=== PATIENT | female | born 1935 | race Hispanic/Latino ===

== ENCOUNTER 2016-05-23 17:38 | Inpatient (IN) | payer OTHER ==
[2016-05-23] MEDS ORDERED: HALDOL IM ONE (20:19)
[2016-05-23 20:21] LABS: Hematocrit 44.7 % (30.3-42.9); Hemoglobin 14.3 gm/dl (10.1-14.3); Mean Corpuscular HGB Conc 32 % (30-34); Mean Corpuscular Hemoglobin 29 pg (28-32); Mean Corpuscular Volume 89 fl (79-97); Platelet Count 370 K/mm3 (140-440)
[2016-05-23 20:25] LABS: White Blood Count 25.5 K/mm3 (4.5-11.0)
[2016-05-23] MEDS ORDERED: ATIVAN IV ONE (20:29)
[2016-05-23] MEDS ORDERED: NACL 0.9% 500 ML 500 ML IV ONE (20:30)
--- NOTE | 2016-05-23 20:32 | Emergency Department Report ---
ED General Adult HPI - General Chief complaint: Nausea/Vomiting/Diarrhea Stated complaint: WEAKNESS Time Seen by Provider: 05/23/16 20:18 Source: EMS (ems notes not available at time of chart dictation), RN notes reviewed Mode of arrival: Stretcher Limitations: Altered Mental Status - History of Present Illness Initial comments: This is an 81-year-old female, previously unknown to me. Her primary care doctor is Dr. Saucedo As per enclosed paperwork, the patient is sent to the ER from the assisted living facility. She has a past medical history of Alzheimer's dementia, hypertension, right breast cancer. She is brought to the hospital by EMS. As per enclosed documentation the patient was sitting up from a sitting position, took a few steps and fell to the floor. When initially assessed she was unresponsive with eyes open, difficult pulses 2 by mouth, an unobtainable blood pressure. She was noted to be pale with diaphoresis. He enclosed documentation demonstrates that it is uncertain whether or not the patient was unresponsive before or after the fall. Apparently, the patient was incontinent of bowel, with loose watery stools at the time of the incident. After a period of 10 minutes the patient became more responsive and was assisted to a standing position. In the ER, the patient is demented, combative, does not answer open-ended questions, and is unable to offer any history. She did not respond to verbal the escalation techniques, and she was clearly a fall risk and a danger to herself. She was given 4 point restraints, and then medicated with Haldol and Ativan for her safety. -: Sudden Severity scale (0 -10): 0 Improves with: none Worsens with: none Associated Symptoms: confusion - Related Data Allergies Allergy/AdvReac Type Severity Reaction Status Date / Time shellfish derived Allergy Unknown Verified 05/23/16 18:39 strawberry Allergy Unknown Verified 05/23/16 18:39 ED Review of Systems ROS: Stated complaint: WEAKNESS Other details as noted in HPI Comment: Unobtainable due to pts medical conditions ED Physical Exam - General Limitations: Altered Mental Status General appearance: in no apparent distress - Head Head exam: Present: atraumatic, normocephalic - Eye Eye exam: Present: normal appearance, EOMI - ENT ENT exam: Present: normal exam, normal orophraynx, mucous membranes moist - Neck Neck exam: Present: normal inspection, full ROM. Absent: tenderness, meningismus - Respiratory Respiratory exam: Present: normal lung sounds bilaterally. Absent: respiratory distress, wheezes, rales, rhonchi, stridor, chest wall tenderness - Cardiovascular Cardiovascular Exam: Present: regular rate, normal rhythm, normal heart sounds. Absent: bradycardia, tachycardia, irregular rhythm, systolic murmur, diastolic murmur, rubs, gallop - GI/Abdominal GI/Abdominal exam: Present: soft, normal bowel sounds. Absent: distended, tenderness, guarding, rebound, rigid, pulsatile mass - Extremities Exam Extremities exam: Present: normal inspection, full ROM, normal capillary refill. Absent: tenderness, pedal edema, joint swelling, calf tenderness - Back Exam Back exam: Present: normal inspection, full ROM. Absent: tenderness, CVA tenderness (R), CVA tenderness (L), muscle spasm, paraspinal tenderness, vertebral tenderness - Neurological Exam Neurological exam: Present: altered, other (patient moves 4 extremities. She is confused, unable to assess sensation. There is no obvious facial droop.) - Psychiatric Psychiatric exam: Present: normal affect, normal mood - Skin Skin exam: Present: warm, dry, intact, normal color. Absent: rash ED Course Vital Signs 05/23/16 05/23/16 05/23/16 19:36 20:00 20:06 Temperature 98.6 F Pulse Rate 103 H 102 H Respiratory 11 L 18 Rate Blood Pressure 159/103 150/63 Blood Pressure 146/70 [Left] O2 Sat by Pulse 100 Oximetry 05/23/16 05/23/16 05/23/16 21:10 21:37 22:18 Temperature 99.4 F Pulse Rate 101 H Respiratory 16 18 Rate Blood Pressure 221/159 Blood Pressure [Left] O2 Sat by Pulse 100 Oximetry 05/23/16 22:58 Temperature Pulse Rate 94 H Respiratory 14 Rate Blood Pressure 155/75 Blood Pressure [Left] O2 Sat by Pulse Oximetry - Reevaluation(s) Reevaluation #1: 05/23/16 22:30 Differential diagnosis: Slip and fall, syncope, postconcussive syndrome, sundowning, urinary tract infection, pneumonia, acute coronary syndrome, arrhythmia, structural cardiac disease, pulmonary embolus, intracranial injury, cervical spine injury, pneumonia Assessment and plan: 81-year-old female with episode of unresponsiveness, documented hypotension, uncertain if the patient had a chewable event of syncope. She is demented, unable to offer history. Objectively speaking, she has stable vital signs, low-grade rectal temperature, is tachycardic, with a nonspecific leukocytosis. A urinalysis does not suggest urinary tract infection , and her chest x-ray does not suggest pneumonia. Her physical exam is otherwise grossly unremarkable. Her EKG is abnormal without prior for comparison. Most likely, I think that the patient had a slip and fall with a probable postconcussion syndrome. However, given her clinical ambiguity, advanced age, medical comorbidities, she will be admitted for further evaluation and management. There is no neck stiffness, there is full range of motion to the neck, therefore I doubt meningitis. However, given her tachycardia, leukocytosis, low-grade temperature, she may be bacteremic. She will be loaded empirically with 1 g of ceftriaxone, she will be given IV fluids , blood cultures will be drawn. I'm awaiting callback from her private physician. Reevaluation #2: 05/23/16 22:[address] Norton, the netsuite consultant,, admit the patient Dr Norton accepted the patient to her service 05/24/16 01:56 - EJ/Peripheral Line Arm R Time Out Performed: Yes Indications: other (i was the first providero to attempt) Skin Cleansed in Sterile Fashion: Yes Size: 18 Dressing Placed: Tegaderm Patient Tolerated Procedure: well ED Medical Decision Making - Lab Data Result diagrams: 05/23/16 20:04 05/23/16 20:04 Vital Signs 05/23/16 05/23/16 05/23/16 20:06 21:37 22:18 Temperature 98.6 F 99.4 F Pulse Rate 102 H Respiratory 18 18 Rate Blood Pressure 146/70 [Left] O2 Sat by Pulse 100 100 Oximetry Lab Results 05/23/16 05/23/16 05/23/16 Range/Units 20:04 20:04 20:40 WBC 25.5 H (4.5-11.0) K/mm3 RBC 5.00 (3.65-5.03) M/mm3 Hgb 14.3 (10.1-14.3) gm/dl Hct 44.7 H (30.3-42.9) % MCV 89 (79-97) fl MCH 29 (28-32) pg MCHC 32 (30-34) % RDW 14.0 (13.2-15.2) % Plt Count 370 (140-440) K/mm3 Add Manual Diff Complete Total Counted 100 Seg Neutrophils % Manager [employer] And Safety Seg Neuts % (Manual) 93.0 H (40.0-70.0) % Band Neutrophils % 3.0 % Lymphocytes % (Manual) 1.0 L (13.4-35.0) % Reactive Lymphs % (Man) 0 % Monocytes % (Manual) 3.0 (0.0-7.3) % Eosinophils % (Manual) 0 (0.0-4.3) % Basophils % (Manual) 0 (0.0-1.8) % Metamyelocytes % 0 % Myelocytes % 0 % Promyelocytes % 0 % Blast Cells % 0 % Nucleated RBC % Not Reportable Seg Neutrophils # Man 23.7 H (1.8-7.7) K/mm3 Band Neutrophils # 0.8 K/mm3 Lymphocytes # (Manual) 0.3 L (1.2-5.4) K/mm3 Abs React Lymphs (Man) 0.0 K/mm3 Monocytes # (Manual) 0.8 (0.0-0.8) K/mm3 Eosinophils # (Manual) 0.0 (0.0-0.4) K/mm3 Basophils # (Manual) 0.0 (0.0-0.1) K/mm3 Metamyelocytes # 0.0 K/mm3 Myelocytes # 0.0 K/mm3 Promyelocytes # 0.0 K/mm3 Blast Cells # 0.0 K/mm3 WBC Morphology Not Reportable Hypersegmented Neuts Not Reportable Hyposegmented Neuts Not Reportable Hypogranular Neuts Not Reportable Smudge Cells Not Reportable Toxic Granulation Not Reportable Toxic Vacuolation Not Reportable Dohle Bodies Not Reportable Pelger-Huet Anomaly Not Reportable [place] Rods Not Reportable Platelet Estimate Consistent w auto Clumped Platelets Not Reportable Plt Clumps, EDTA Not Reportable Large Platelets 1+ Giant Platelets Not Reportable Platelet Satelliting Not Reportable Plt Morphology Comment Not Reportable RBC Morphology Normal Dimorphic RBCs Not Reportable Polychromasia Not Reportable Hypochromasia Not Reportable Poikilocytosis Not Reportable Anisocytosis Not Reportable Microcytosis Not Reportable Macrocytosis Not Reportable Spherocytes Not Reportable Pappenheimer Bodies Not Reportable Sickle Cells Not Reportable Target Cells Not Reportable Tear Drop Cells Not Reportable Ovalocytes Not Reportable Helmet Cells Not Reportable [place] Bodies Not Reportable [place] Rings Not Reportable Levasy Cells Not Reportable Bite Cells Not Reportable Crenated Cell Not Reportable Elliptocytes Not Reportable Acanthocytes (Spur) Not Reportable Rouleaux Not Reportable Hemoglobin C Crystals Not Reportable Schistocytes Not Reportable Malaria parasites Not Reportable Javier Bodies Not Reportable Hem Pathologist Commnt No PT (12.2-14.9) Sec. INR (0.87-1.13) APTT (24.2-36.6) Sec. D-Dimer (0-234) ng/mlDDU Sodium 140 (137-145) mmol/L Potassium 5.1 H (3.6-5.0) mmol/L Chloride 97.4 L (98-107) mmol/L Carbon Dioxide 24 (22-30) mmol/L Anion Gap 24 mmol/L BUN 28 H (7-17) mg/dL Creatinine 1.0 (0.7-1.2) mg/dL Estimated GFR 53 ml/min BUN/Creatinine Ratio 28.00 % Glucose 149 H (65-100) mg/dL Lactic Acid (0.7-2.0) mmol/L Calcium 10.1 (8.4-10.2) mg/dL Magnesium (1.7-2.3) mg/dL Total Creatine Kinase (30-135) units/L Troponin T < 0.010 (0.00-0.029) ng/mL Urine Color (Yellow) Urine Turbidity (Clear) Urine pH (5.0-7.0) Ur Specific [place] (1.003-1.030) Urine Protein (Negative) mg/dL Urine Glucose (UA) (Negative) mg/dL Urine Ketones (Negative) mg/dL Urine Blood (Negative) Urine Nitrite (Negative) Urine Bilirubin (Negative) Urine Urobilinogen (<2.0) mg/dL Ur Leukocyte Esterase (Negative) Urine WBC (Auto) (0.0-6.0) /HPF Urine RBC (Auto) (0.0-6.0) /HPF U Epithel Cells (Auto) (0-13.0) /HPF Urine Mucus /HPF 05/23/16 05/23/16 05/23/16 Range/Units 20:40 20:41 21:30 WBC (4.5-11.0) K/mm3 RBC (3.65-5.03) M/mm3 Hgb (10.1-14.3) gm/dl Hct (30.3-42.9) % MCV (79-97) fl MCH (28-32) pg MCHC (30-34) % RDW (13.2-15.2) % Plt Count (140-440) K/mm3 Add Manual Diff Total Counted Seg Neutrophils % Seg Neuts % (Manual) (40.0-70.0) % Band Neutrophils % % Lymphocytes % (Manual) (13.4-35.0) % Reactive Lymphs % (Man) % Monocytes % (Manual) (0.0-7.3) % Eosinophils % (Manual) (0.0-4.3) % Basophils % (Manual) (0.0-1.8) % Metamyelocytes % % Myelocytes % % Promyelocytes % % Blast Cells % % Nucleated RBC % Seg Neutrophils # Man (1.8-7.7) K/mm3 Band Neutrophils # K/mm3 Lymphocytes # (Manual) (1.2-5.4) K/mm3 Abs React Lymphs (Man) K/mm3 Monocytes # (Manual) (0.0-0.8) K/mm3 Eosinophils # (Manual) (0.0-0.4) K/mm3 Basophils # (Manual) (0.0-0.1) K/mm3 Metamyelocytes # K/mm3 Myelocytes # K/mm3 Promyelocytes # K/mm3 Blast Cells # K/mm3 WBC Morphology Hypersegmented Neuts Hyposegmented Neuts Hypogranular Neuts Smudge Cells Toxic Granulation Toxic Vacuolation Dohle Bodies Pelger-Huet Anomaly [place] Rods Platelet Estimate Clumped Platelets Plt Clumps, EDTA Large Platelets Giant Platelets Platelet Satelliting Plt Morphology Comment RBC Morphology Dimorphic RBCs Polychromasia Hypochromasia Poikilocytosis Anisocytosis Microcytosis Macrocytosis Spherocytes Pappenheimer Bodies Sickle Cells Target Cells Tear Drop Cells Ovalocytes Helmet Cells [place] Bodies [place] Rings Levasy Cells Bite Cells Crenated Cell Elliptocytes Acanthocytes (Spur) Rouleaux Hemoglobin C Crystals Schistocytes Malaria parasites Javier Bodies Hem Pathologist Commnt PT 13.0 (12.2-14.9) Sec. INR 0.99 (0.87-1.13) APTT 28.1 (24.2-36.6) Sec. D-Dimer 225.42 (0-234) ng/mlDDU Sodium (137-145) mmol/L Potassium (3.6-5.0) mmol/L Chloride (98-107) mmol/L Carbon Dioxide (22-30) mmol/L Anion Gap mmol/L BUN (7-17) mg/dL Creatinine (0.7-1.2) mg/dL Estimated GFR ml/min BUN/Creatinine Ratio % Glucose (65-100) mg/dL Lactic Acid (0.7-2.0) mmol/L Calcium (8.4-10.2) mg/dL Magnesium 2.1 (1.7-2.3) mg/dL Total Creatine Kinase 28 L (30-135) units/L Troponin T (0.00-0.029) ng/mL Urine Color [place] (Yellow) Urine Turbidity Slightly-cloudy (Clear) Urine pH 5.0 (5.0-7.0) Ur Specific [place] 1.024 (1.003-1.030) Urine Protein 30 mg/dl (Negative) mg/dL Urine Glucose (UA) Neg (Negative) mg/dL Urine Ketones Tr (Negative) mg/dL Urine Blood Neg (Negative) Urine Nitrite Neg (Negative) Urine Bilirubin Neg (Negative) Urine Urobilinogen 2.0 (<2.0) mg/dL Ur Leukocyte Esterase Neg (Negative) Urine WBC (Auto) 3.0 (0.0-6.0) /HPF Urine RBC (Auto) 5.0 (0.0-6.0) /HPF U Epithel Cells (Auto) 1.0 (0-13.0) /HPF Urine Mucus 3+ /HPF 05/23/16 Range/Units 21:32 WBC (4.5-11.0) K/mm3 RBC (3.65-5.03) M/mm3 Hgb (10.1-14.3) gm/dl Hct (30.3-42.9) % MCV (79-97) fl MCH (28-32) pg MCHC (30-34) % RDW (13.2-15.2) % Plt Count (140-440) K/mm3 Add Manual Diff Total Counted Seg Neutrophils % Seg Neuts % (Manual) (40.0-70.0) % Band Neutrophils % % Lymphocytes % (Manual) (13.4-35.0) % Reactive Lymphs % (Man) % Monocytes % (Manual) (0.0-7.3) % Eosinophils % (Manual) (0.0-4.3) % Basophils % (Manual) (0.0-1.8) % Metamyelocytes % % Myelocytes % % Promyelocytes % % Blast Cells % % Nucleated RBC % Seg Neutrophils # Man (1.8-7.7) K/mm3 Band Neutrophils # K/mm3 Lymphocytes # (Manual) (1.2-5.4) K/mm3 Abs React Lymphs (Man) K/mm3 Monocytes # (Manual) (0.0-0.8) K/mm3 Eosinophils # (Manual) (0.0-0.4) K/mm3 Basophils # (Manual) (0.0-0.1) K/mm3 Metamyelocytes # K/mm3 Myelocytes # K/mm3 Promyelocytes # K/mm3 Blast Cells # K/mm3 WBC Morphology Hypersegmented Neuts Hyposegmented Neuts Hypogranular Neuts Smudge Cells Toxic Granulation Toxic Vacuolation Dohle Bodies Pelger-Huet Anomaly [place] Rods Platelet Estimate Clumped Platelets Plt Clumps, EDTA Large Platelets Giant Platelets Platelet Satelliting Plt Morphology Comment RBC Morphology Dimorphic RBCs Polychromasia Hypochromasia Poikilocytosis Anisocytosis Microcytosis Macrocytosis Spherocytes Pappenheimer Bodies Sickle Cells Target Cells Tear Drop Cells Ovalocytes Helmet Cells [place] Bodies [place] Rings Levasy Cells Bite Cells Crenated Cell Elliptocytes Acanthocytes (Spur) Rouleaux Hemoglobin C Crystals Schistocytes Malaria parasites Javier Bodies Hem Pathologist Commnt PT (12.2-14.9) Sec. INR (0.87-1.13) APTT (24.2-36.6) Sec. D-Dimer (0-234) ng/mlDDU Sodium (137-145) mmol/L Potassium (3.6-5.0) mmol/L Chloride (98-107) mmol/L Carbon Dioxide (22-30) mmol/L Anion Gap mmol/L BUN (7-17) mg/dL Creatinine (0.7-1.2) mg/dL Estimated GFR ml/min BUN/Creatinine Ratio % Glucose (65-100) mg/dL Lactic Acid 3.3 H* (0.7-2.0) mmol/L Calcium (8.4-10.2) mg/dL Magnesium (1.7-2.3) mg/dL Total Creatine Kinase (30-135) units/L Troponin T (0.00-0.029) ng/mL Urine Color (Yellow) Urine Turbidity (Clear) Urine pH (5.0-7.0) Ur Specific [place] (1.003-1.030) Urine Protein (Negative) mg/dL Urine Glucose (UA) (Negative) mg/dL Urine Ketones (Negative) mg/dL Urine Blood (Negative) Urine Nitrite (Negative) Urine Bilirubin (Negative) Urine Urobilinogen (<2.0) mg/dL Ur Leukocyte Esterase (Negative) Urine WBC (Auto) (0.0-6.0) /HPF Urine RBC (Auto) (0.0-6.0) /HPF U Epithel Cells (Auto) (0-13.0) /HPF Urine Mucus /HPF - EKG Data When compared to previous EKG there are: previous EKG unavailable Normal 05/23/16 22:30\ EKG demonstrates sinus tachycardia, 101 bpm, normal axis, prolonged QTC at 469 ms. Poor R-wave progression, T-wave inversions V2, V3, V4, V5 and V6. Abnormal EKG, not morphologically consistent with STEMI. - Radiology Data Radiology results: report reviewed, image reviewed interpreted by me: xr chest negative ct head negative ct cervical spine negative Critical care attestation.: If time is entered above; I have spent that time in minutes in the direct care of this critically ill patient, excluding procedure time. ED Disposition Clinical Impression: Abnormal EKG, Altered mental status Disposition: OP ADMITTED IP TO THIS HOSP Is pt being admited?: Yes Condition: Good
[2016-05-23 20:38] LABS: Calcium 10.1 mg/dL (8.4-10.2); Chloride 97.4 mmol/L (98-107); Potassium 5.1 mmol/L (3.6-5.0)
[2016-05-23 21:01] LABS: INR 0.99 (0.87-1.13)
[2016-05-23 21:02] LABS: Partial Thromboplastin Time 28.1 Sec. (24.2-36.6)
[2016-05-23 21:08] LABS: Basophils % (Manual) 0 % (0.0-1.8); Blastocytes % (Manual) 0 %; Eosinophils % (Manual) 0 % (0.0-4.3); Large Platelets 1+
[2016-05-23 21:09] LABS: Diff Status Complete; Platelet Estimate Consistent w Auto; RBC Morphology Normal
--- NOTE | 2016-05-23 21:22 | Cat Scan Report ---
FINAL REPORT PROCEDURE: CT head without contrast. TECHNIQUE: Computerized tomography of the head was performed without contrast material. HISTORY: Altered mental status, patient fell. COMPARISON: No prior studies are available for comparison. FINDINGS: There is moderate cerebral atrophy consistent with age. There is mild evidence of chronic ischemic white matter disease. There are no mass lesions. There is no intracranial hemorrhage. There are no signs of acute infarction. The calvarium appears intact. There is opacification of the right mastoid air cells. There is some fluid adjacent to the inner ear ossicles. There are bilateral maxillary antral windows. IMPRESSION: Normal study of the brain for age. Right mastoiditis and otitis media.
--- NOTE | 2016-05-23 21:40 | Cat Scan Report ---
FINAL REPORT PROCEDURE: CT cervical spine without contrast. TECHNIQUE: Computerized tomography of the cervical spine was performed from the skull base to T1 without contrast material. HISTORY: Altered mental status, patient fell, neck pain. COMPARISON: No prior studies are available for comparison. FINDINGS: The cervical vertebrae have normal height and alignment. There are no fractures. There is no subluxation. There is moderate disc space narrowing at C5-6 and C6-7. There are small vertebral body osteophytes in the lower cervical spine. The spinal canal appears adequately patent. 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 There is moderate osteophytic narrowing of the left neural foramina at C6-7. The prevertebral soft tissues have normal thickness. IMPRESSION: Degenerative disease as described. No evidence of acute cervical spine injury.
[2016-05-23 21:46] LABS: Magnesium 2.1 mg/dL (1.7-2.3)
[2016-05-23 22:01] LABS: Bilirubin,Urine NEG (Negative); Blood,Urine NEG (Negative); Ketones,Urine TR mg/dL (Negative); Leukocyte Esterase,Urine NEG (Negative); Mucus,Urine 3+ /HPF; Nitrite,Urine NEG (Negative)
[2016-05-23] MEDS ORDERED: ROCEPHIN/NS 1 GM/50 ML 50 ML IV ONE (22:28)
[2016-05-23] MEDS ORDERED: BABY ASPIRIN PO ONE (22:35)
--- NOTE | 2016-05-23 23:10 | XRay Report ---
FINAL REPORT PROCEDURE: Chest. TECHNIQUE: Chest radiograph anteroposterior view. CPT 13695 HISTORY: Altered mental status, possible pneumonia. COMPARISON: No prior studies are available for comparison. FINDINGS: The heart size is normal. There is dense calcification in the aortic arch. The lungs are clear and well expanded. There are no pleural effusions. The soft tissues are unremarkable. There is a mild thoracic scoliosis. IMPRESSION: No evidence of acute cardiopulmonary disease.
--- NOTE | 2016-05-24 00:22 | Admit Criteria Form ---
Admission Criteria Documentation: CARDIOLOGY GRG Clinical Indications for Admission to Inpatient Care ( Place 'X' for any and all applicable criteria): Hospital admission is needed for appropriate care of the patient because of ANY ONE of the following (1): [ ] I. Hemodynamic instability as indicated by ALL of the following (1)(2)(3) (4)(5) [ ]a) Vital signs or other findings not as expected for chronic patient condition or baseline [ ]b) Instability indicated by ANY ONE of the following: [ ]i) Hypotension [ ]ii) Symptomatic Tachycardia unresponsive to treatment ( e.g., analgesia, fluids, sedation as indicated) [ ]iii) Inadequate perfusion indicated by ANY ONE of the following: [ ] 1) Lactic acidosis (> 2 mmol/L) [ ] 2) New abnormal capillary refill (> 3 seconds) [ ] 3) Reduced urine output [ ] 4) New altered mental status [ ]iv) Orthostatic vital sign changes unresponsive to treatment (e.g., fluids) [ ]v) IV inotropic or vasopressor medication required to maintain adequate blood pressure or perfusion [ ] II. Severe heart failure as indicated by ANY ONE of the following(17)(18) [ ]a) Respiratory distress [ ]b) Hypotension [ ]c) Anasarca (refractory to outpatient therapy) [ ]d) Cardiac arrhythmias of immediate concern [ ]e) Myocardial ischemia [ ] III. Cardiac arrhythmias or findings of immediate concern indicated by ANY ONE of the following (19)(20): [ ] a) Heart rhythms that are inherently dangerous or unstable indicated by ANY ONE of the following (21)(22)(23): [ ] i) Resuscitated ventricular fibrillation or cardiac arrest [ ] ii) Ventricular escape rhythm [ ] iii) Sustained ventricular tachycardia (30 seconds or more of ventricular rhythm at greater than 100 beats per minute) [ ] iv) Nonsustained ventricular tachycardia and ANY ONE of the following: [ ] 1) Suspected cardiac ischemia as cause or consequence of ventricular tachycardia [ ] 2) In setting of acute myocarditis [ ] b) Unstable cardiac conduction defects indicated by ANY ONE of the following(23)(24)(25) [ ] i) Type II second-degree atrioventricular block [ ]ii) Third-degree atrioventricular block [ ]iii) New-onset left bundle branch block with suspected myocardial ischemia [ ]c) Any heart rhythm and ANY ONE of the following (21)(22)(26)(27) (28) [ ] i) Continuous long-term ECG monitoring needed (e.g., initiation of drug requiring monitoring for more than 24 hours) [ ] ii) Patient has automatic implanted cardioverter defibrillator that is repeatedly firing, malfunctioning, or in need of immediate adjustment of settings beyond the scope of ambulatory or observation care [ ]d) Heart rhythms of concern due to ANY ONE of the following: [ ] i) Hypotension [ ] ii) Respiratory distress [ ] iii) Association with other significant symptoms (e.g., bradycardia with syncope or ongoing dizziness, supraventricular tachycardia with chest pain (14)(15)(17) [ ] IV. Monitoring for cardiac contusion beyond the scope of observation care needed [A](30)(31)(32) [ ] V. Surgical or device complication (e.g., valve replacement complication , pacemaker dysfunction) (35)(41)(44)(45)(46) [ ] . Inpatient palliative care needed. [B](49) Also use Inpatient Palliative Care Criteria [ ] VII. Nonbacterial thrombotic (marantic) endocarditis (36)(43)(47)(48) [X ] VIII. Cardiology condition, symptom, or finding for which emergency and observation care has failed or are not considered appropriate. [ ] IX. Acute valvular disease requiring inpatient as indicated by ANY ONE of the following (41) [ ]a) Acute valvular regurgitation (42) [ ]b) Noninfectious valvulitis (43) [ ]c) Obstructive valve thrombosis [ ]d) Paravalvular leak [ ]e) Other significant valvular disorder remaining after emergency or observation level of care (as appropriate) [ ]X. Pericardial disease requiring inpatient treatment as indicated by ANY ONE of the following (33)(34)(35)(36)(37) [ ]a) Suspected tamponade (38)(39)(40) [ ]b) Hemopericardium [ ]c) Other significant pericardial disorder remaining after emergency or observation level of care (as appropriate) [ ] XI. Cardiac ischemia beyond scope of emergency and observation care. [ ] XII. Hypertension requiring inpatient treatment as indicated by ANY ONE of the following (6)(7)(8) [ ]a) SBP greater than 220 mm Hg or DBP greater than 120 mmHg despite treatment [ ]b) SBP greater than 140 mm Hg or DBP greater than 100 mm Hg with evidence of acute end organ damage as indicated by ANY ONE of the following [ ] i) Altered mental status [ ] ii) Acute renal failure as indicated by new onset of ANY ONE of the following (9)(10)(11)(12)(13) [ ]1) 3-fold rise in serum creatinine from baseline [ ]2) Serum creatinine greater than 4 mg/dL ( 354 micromoles/L) with acute rise greater than 0.5 mg/dL (44.2 micromoles/L) [ ]3) Reduction of more than 75% in estimated glomerular filtration rate from baseline [ ]4) Estimated glomerular filtration rate less than 35 mL/min/1.73m2 (0.59 mL/sec/1.73m2) in child up to 18 years of age [ ]5) Cessation of urine output indicated by ALL of the following [ ]A. Adequate volume status [ ]B. Inadequate urine output as indicated by ANY ONE of the following [ ]a. Urine output less than 0.3 mL/kg/hr for 24 hours [ ]b. Anuria (urine output less than 0.1 mL/kg/hr) for 12 hours [ ] iii) Aortic dissection [ ] iv) Myocardial Ischemia [ ] v) Left ventricular heart failure [ ]vi) Retinal Hemorrhage [ ]vii) Other significant finding [ ]c) Hypertension in child requiring inpatient treatment as indicated by ALL of the following(14)(15)(16) [ ] i) Outpatient treatment not effective, not available, or not appropriate [ ]ii) SBP or DBP greater than 95th percentile for age [ ]iii) Evidence of acute end organ damage as indicated by ANY ONE of the following [ ]1) Altered mental status [ ]2) Acute renal failure as indicated by new onset of ANY ONE of the following(9)(10)(11)(12)(13) [ ]A. 3-fold rise in serum creatinine from baseline [ ]B. Serum creatinine greater than 4 mg/dL (354 micromoles/L) with acute rise greater than 0.5 mg/dL (44.2 micromoles/L) [ ]C. Reduction of more than 75% in estimated glomerular filtration rate from baseline [ ]D. Estimated glomerular filtration rate less than 35 mL/min/1.73m2 (0.59 mL/sec/1.73m2) in child up to 18 years of age [ ]E. Cessation of urine output indicated by ALL of the following [ ]a. Adequate volume status [ ]b. Inadequate urine output as indicated by ANY ONE of the following [ ]i) Urine output less than 0.3 mL/kg/hr for 24 hours [ ]ii) Anuria ( urine output less than 0.1 mL/kg/hr) for 12 hours [ ]3) Severe headache [ ]4) Visual disturbance [ ]5) Retinal hemorrhage [ ]6) Other significant finding [ ]XIII. Complications of transplanted heart indicated by ANY ONE of the following(61): [ ]a) Acute graft rejection requiring inpatient management (eg, intravenous immunosuppression)(62)(63) [ ]b) Acute graft heart failure indicated by ANY ONE of the following(64): [ ]i) Hemodynamic instability [ ]ii) Cardiac arrhythmias of immediate concern [ ]iii) Pulmonary edema that is very severe (eg, mechanical ventilation needed, imminent or likely, need for 100% oxygen to keep oxygen saturation above 90%) [ ]iv) Pulmonary edema that is persistent as indicated by ALL of the following: [ ]1) New need for oxygen therapy to keep oxygen saturation above 90% (or increased FiO2 need from baseline) [ ]2) Has not improved sufficiently with emergency department or observation care IV diuretics or other heart failure treatments[E] [ ]v) Altered mental status that is severe or persistent [ ]vi) Increased creatinine (new on laboratory test) with reduction of more than 50% in estimated glomerular filtration rate from baseline [ ]vii) Progressively (ongoing) rising creatinine (known from past laboratory test) with reduction of more than 25% in estimated glomerular filtration rate from baseline [ ]viii) Acute renal failure [ ]ix) Acute peripheral ischemia (eg, examination shows pulseless, cool, mottled, or cyanotic extremity) [ ]x) Pulmonary artery catheter monitoring needed [ ]xi) Other sign or symptom of heart failure requiring inpatient treatment (ie, too severe or not responsive to outpatient and observation care treatment) [ ]c) Infection requiring inpatient management (eg, Hemodynamic instability, need for intravenous antimicrobial treatment)(66)(67)(68)(69)(70) [ ]d) Cardiac allograft vasculopathy requiring inpatient management ( eg evidence of cardiac ischemia)(71) [ ]e) Other complication of transplanted heart (eg, stroke, severe pulmonary hypertension, severe valvular dysfunction) requiring inpatient management(72) The original [facility] [employer] [facility] content created by [email or web address] has been revised. The portions of the content which have been revised are identified through the use of italic text or in bold, and [facility] has neither reviewed nor approved the modified material. All other unmodified content is copyright [email or web address]. Please see references footnoted in the original [email or web address] edition 2016 Admission Criteria Met: Yes
[2016-05-24] MEDS ORDERED: MILK OF MAGNESIA PO PRN (03:21)
[2016-05-24] MEDS ORDERED: TYLENOL PO PRN (03:21)
[2016-05-24] MEDS ORDERED: ZOFRAN IV PRN (03:21)
[2016-05-24] MEDS ORDERED: APRESOLINE IV PRN (06:35)
--- NOTE | 2016-05-24 06:37 | History and Physical Report ---
[id number] History of present illness: This is a 81-year-old woman with history of hypertension, dementia, breast cancer was sent to the emergency room for loose stool and vomiting 2. Notes from the facility, there has been an outbreak of gastroenteritis. Patient is unable to give a history, review of system is unobtainable PAST SURGICAL HISTORY: Unknown SOCIAL HISTORY: Unknown FAMILY HISTORY: Unknown Medications and Allergies Allergies Allergy/AdvReac Type Severity Reaction Status Date / Time shellfish derived Allergy Unknown Verified 05/23/16 18:39 strawberry Allergy Unknown Verified 05/23/16 18:39 Home Medications Medication Instructions Recorded Confirmed Last Taken Type Anastrozole 1 mg PO QDAY 05/24/16 05/24/16 05/23/16 History Doxepin [SINEquan] 10 mg PO QHS 05/24/16 05/24/16 05/23/16 History Lisinopril 40 mg PO QDAY 05/24/16 05/24/16 05/23/16 History Active Meds: Active Medications Acetaminophen (Tylenol) 650 mg PO Q4H PRN PRN Reason: Pain MILD(1-3)/Fever >100.5/BOLDEN Doxepin HCl (Sinequan) 10 mg PO QHS CHE Enoxaparin Sodium (Lovenox) 40 mg SUB-Q QDAY@1000 CHE Hydralazine HCl (Apresoline) 5 mg IV Q6HR PRN PRN Reason: Hypertension Ceftriaxone Sodium (Rocephin/Ns 1 Gm/50 Ml) 50 mls @ 100 mls/hr IV Q24H CEH Lisinopril (Zestril) 40 mg PO QDAY CHE Magnesium Hydroxide (Milk Of Magnesia) 30 ml PO Q4H PRN PRN Reason: Constipation Miscellaneous Medication (Anastrozole [Anastrozole]) 1 mg PO QDAY CHE Ondansetron HCl (Zofran) 4 mg IV Q8H PRN PRN Reason: N/V unrelieved by Reglan Exam - Physical Exam Narrative exam: Gen. appearance: Patient lying in bed, no apparent distress HEENT: Normocephalic, atraumatic, pupils equally round and reactive to light, extraocular movement intact, and no sclericterus,. No JVD or thyromegaly or nodule,neck supple, no carotid bruit ,mucous membranes moist, no exudate or erythema Heart: S1, S2, regular rate and rhythm Lungs: Clear to auscultation bilaterally anteriorly, breathing comfortable Abdomen: Positive bowel sounds, nontender, nondistended, no organomegaly Extremity: No edema, cyanosis, clubbing Skin: No rash, nodules, warm, dry Neuro: Open eyes, does not follow commands - Constitutional Vitals: Temp Pulse Resp BP Pulse Ox 98.6 F 106 H 18 192/85 95 05/24/16 06:07 05/24/16 06:07 05/24/16 06:07 05/24/16 06:07 05/24/16 06:07 Results - Labs CBC & Chem 7: 05/25/16 05:30 05/25/16 05:30 - Imaging and Cardiology CT Scan - head: report reviewed Assessment and Plan CT C-spine reviewed, no acute pathology Gastroenteritis, rule out C. difficile Dehydration Hypertension Dementia History of breast cancer Admits medicine Start IV fluid, IV Rocephin pending cultures Up obtain stool cultures, C. difficile Continue appropriate outpatient medication Start IV hydralazine as needed for blood pressure control and start DVT prophylaxis
[2016-05-24] MEDS ORDERED: LOVENOX SUB-Q SCH (10:00)
[2016-05-24] MEDS ORDERED: ANASTROZOLE 1 MG PO SCH (10:00)
[2016-05-24] MEDS ORDERED: HALDOL PO PRN (11:11)
[2016-05-24] MEDS: LOVENOX SUB-Q SCH (11:55)
[2016-05-24] MEDS: ZESTRIL PO SCH (17:12)
[2016-05-24] MEDS ORDERED: SINEquan PO SCH (22:00)
[2016-05-24] MEDS ORDERED: ROCEPHIN/NS 1 GM/50 ML 50 ML IV SCH (22:00)
[2016-05-25 06:02] LABS: Hematocrit 36.8 % (30.3-42.9); Hemoglobin 12.3 gm/dl (10.1-14.3); Mean Corpuscular HGB Conc 33 % (30-34); Mean Corpuscular Hemoglobin 29 pg (28-32); Mean Corpuscular Volume 87 fl (79-97); Platelet Count 250 K/mm3 (140-440); Red Blood Count 4.21 M/mm3 (3.65-5.03); Red Cell Distribution Width 14.3 % (13.2-15.2); White Blood Count 6.8 K/mm3 (4.5-11.0)
[2016-05-25 06:16] LABS: Anion Gap 17 mmol/L; BUN/Creatinine Ratio 34.44; Blood Urea Nitrogen 31 mg/dL (7-17); Calcium 9.1 mg/dL (8.4-10.2); Carbon Dioxide 24 mmol/L (22-30); Chloride 102.8 mmol/L (98-107); Glucose 89 mg/dL (65-100); Sodium 140 mmol/L (137-145)
[2016-05-25 06:30] LABS: Potassium 3.7 mmol/L (3.6-5.0)
[2016-05-25 06:51] LABS: Blastocytes % (Manual) 0 %; Diff Status Complete; Platelet Estimate Consistent w Auto; RBC Morphology Normal
[2016-05-25 09:07] VITALS: BP 135/63
[2016-05-25] MEDS: ZESTRIL PO SCH (10:16)
[2016-05-25] MEDS: LOVENOX SUB-Q SCH (10:17)
--- NOTE | 2016-05-25 11:09 | Discharge Summary ---
Providers - Providers Date of Admission: 05/24/16 00:15 Attending physician: FELIPA MUJICA MD Primary care physician: IRENE SHETTY Hospitalization Condition: Good Hospital course: This is an elderly woman with advanced dementia who resides in a [facility]. There was apparently a gastroenteritis outbreak in her [facility]. She presented with 1-2 days of watery diarrhea and dehydration. She was hydrated with IV fluids. Of notes diarrhea resolved shortly after arriving at the hospital, she clinically improved and is being discharged in improved condition Discharge diagnoses 1. Acute gastroenteritis 2. Dehydration. 3. Dementia- received supportive care 4. Hypertension- continue home meds 5. hx of breast ca- continued anastrazole Disposition: DC/[place] SNF W [facility] CERT Time spent for discharge: 35 minutes Core Measure Documentation - Palliative Care Palliative Care/ Comfort Measures: Not Applicable - Core Measures Any of the following diagnoses?: none Exam - Physical Exam Narrative exam: General: Patient appears well in no distress HEENT: MMM, EOMI cardiac: S1-S2 heard lungs: clear to auscultation, abdomen: soft, nontender, nondistended bowel sounds positive extremities: no edema clubbing or cyanosis Skin: no rash or lesion Neuro: Moves all extremities, demented, obeys some commands Psych: Demented - Constitutional Vitals: Temp Pulse Resp BP Pulse Ox 98.2 F 58 L 16 135/63 98 05/25/16 09:06 05/25/16 09:06 05/25/16 09:06 05/25/16 09:06 05/25/16 09:06 Plan Follow up with: IRENE SHETTY MD [Primary Care Provider] - 3-5 Days
--- NOTE | 2016-05-30 11:19 | Query-Infection ---
"Dear Date:05/30/16 Campus Recruiting Coordinator/CDS:Rosalio Martinez Phone#: Exercise your independent professional judgment when responding to this query. Questions asked do not imply a particular answer is desired or expected. We greatly appreciate your clarification on this issue. Clinical Documentation States: 81 Y/O f admitted 05/24/16 with AMS, dehydration, diarrhea and gastroenteritis. Patient was treated with rocephin. Clinical findings show: (please check applicable parameters) Infection, known /suspected, with some of the following indicators; Specify the infection:Gastroenteritis 3 General parameters [ ] Fever (core temp >38.30C or 100.40F) [ ] Hypothermia (core temp <36C) [x] Heart rate >90 bpm [ ] Tachypnea: >20 bpm or pCO2 < 32 mmHg [ ] Altered mental status [ ] Significant edema / +ve fluid balance (>20 ml/kg 24 h) [ ] Hyperglycemia (Bl. glucose >110 mg/dl) w/o diabetes Inflammatory parameters [x] Leukocytosis (white blood cell count >12,000/l) [ ] Leukopenia (white blood cell count <4,000/l) [ ] Bandemia (immature WBC > 10%) [ ] Leucocyte Left Shift [ ] Plasma procalcitonin>2 SD above the normal value Hemodynamic and tissue perfusion parameters [ ] Arterial hypotension(SBP <90 mmHg, MAP <70 mmHg,or a SBP drop >40 mmHg in adults) [x] Hyperlactatemia (>2 mmol/l) [ ] Anion Gap (> 11mEG/l) [ ] Decreased capillary refill or mottling Organ dysfunction parameters [ ] Arterial hypoxemia (PaO2/FIO2 <300) [ ] Creatinine increase =0.5 mg/dl [ ] Acute oliguria (urine output <0.5 ml | kg |h or 45 mM/l for at least 2 hrs) [ ] Coagulation abnormalities (INR >1.5 or activated partial thromboplastin time >60 s) [ ] Ileus (absent ken wel sounds) [ ] Thrombocytopenia (platelet count <100,000/l) [ ] Hyperbilirubinemia (plasma total bilirubin >4 mg/dl) According to the clinical indications above, can Bacteremia be further specified? If so, please indicate below and in your Progress Notes and/ or Discharge Summary. Indicate if the condition was present on admission. PHYSICIAN RESPONSE: [ x] Sepsis [ ] Severe Sepsis [ ] Septic Shock [ ] Septicemia [ ] Sepsis now resolved [ ] SIRS due to non-infectious cause with organ dysfunction [ ] SIRS due to non-infectious cause without organ dysfunction [ ] Other: [ ] Comment/Explanation: Present on Admission: [ ] Yes (Y) [ ] Clinically undeterminable (W) [ ] No ( N) [ ] Ruled Out Please also document response in your Progress Notes and/or Discharge Summary and indicate if the condition was present on admission Notes: SIRS/ SIRS WITH ORGAN DYSFUNCTION Systemic inflammatory response syndrome (SIRS) generally refers to the systemic response to trauma/haque or other insult such as Acute Myocardial Infarction, Acute Pancreatitis, and Major Surgery with symptoms including fever, tachycardia , tachypnea, and leukocytosis (1). BACTEREMIA Presence of viable bacteria in the circulating blood (2). This term is reserved for patients that do not manifest above SIRS response. SEPTICEMIA Generally refers to a systemic disease associated with the presence of pathological microorganisms or toxins in the blood, which can include bacteria, viruses, fungi or other organisms (1). SEPSIS Generally refers to SIRS due infection (1). SEVERE SEPSIS Generally refers to sepsis associated with acute organ dysfunction (1). SEPTIC SHOCK Generally refers to circulatory failure associated with severe sepsis (2), and defined as hypotension or hypoperfusion despite adequate fluid resuscitation (1 hour) (3). REFERENCES: 1. [employer]/Society of Critical Care Medicine Consensus Conference. Definitions for sepsis and organ failure and guidelines for the use of innovative therapies in sepsis. Critical Care Med 1992;20:864 - 74. 2. Irvin velasquez MM, Adis MP, Yung NIKKI, Harjit E, Simba D, Misael D, Caden J, Liliana SM , Saurabh JL, Sharon G; International Sepsis Definitions Conference. 2001 SCCM/ESICM/ACCP/ATS/SIS International Sepsis Definitions Conference. Intensive Care Med. 2002 Apr;29(4):530-8. Epub 2003 Mar 28. Review. PubMed PMID:[id number] 3. ICD-9-CM Official Guidelines for Coding and Reporting 4. Medscape Drugs, Diseases and Procedures references 5. Jennifer Textbook of Internal Medicine. 18th Edition MTDD"
--- NOTE | 2016-05-30 11:23 | Query-Altered Level of Consc. ---
Dear Date:05/30/16 Senior Project Controls Specialist/CDS:Rosalio Martinez Phone#: Exercise your independent professional judgment when responding to this query. Questions asked do not imply a particular answer is desired or expected. We greatly appreciate your clarification on this issue. Clinical Documentation States: 81 y/o f admitted 05/24/16 with AMS and PMH dementia. "Unresponsive with eyes open". (ED note, Dr. Marr, 05/24/16) Clinical Findings Show: Patient was also diagnosed with dehydration, diarrhea, MEHUL and gastroenteritis. patient treated with ceftriaxone. Please provide an appropriate diagnosis clarifying the Etiology and Acuity of this clinical scenario: [ ] Metabolic Encephalopathy [ ] Toxic Encephalopathy [ x] Toxic - Metabolic Encephalopathy [ ] Septic Encephalopathy with Sepsis [ ] Septic Encephalopathy without Sepsis [ ] Acute Hepatic Encephalopathy [ ] Subacute Hepatic Encephalopathy [ ] Encephalopathy [ ] Other: [ ] Unable To Determine [ ]Comment/Explanation: Present on Admission: [ x] Yes (Y) [ ] Clinically undeterminable (W) [ ] No (N) Please also document response in your Progress Notes and/or Discharge Summary and indicate if the condition was present on admission. MTDD
== END 2016-05-25 13:10 | DRG 871 ==
LOC: ED 17:38 → 4A 05-24 00:15
PROVIDERS: ADMIT Internal Medicine; ATTEND Internal Medicine
DX: A41.9 Sepsis, unspecified organism (principal); G92 Toxic encephalopathy; K52.9 Noninfective gastroenteritis and colitis, unspecified; G30.9 Alzheimer's disease, unspecified; F02.80 Dementia in other diseases classified elsewhere, unspecified severity, without behavioral disturbance, psychotic disturbance, mood disturbance, and anxiety; I10 Essential (primary) hypertension; E86.0 Dehydration; C50.911 Malignant neoplasm of unspecified site of right female breast; Z91.013 Allergy to seafood; Z91.018 Allergy to other foods; Z78.1 Physical restraint status
CPT/HCPCS: 36415; 70450; 71010; 72125; 80048; 81001; 82140; 82550; 83735; 84484; 85007; 85025; 85379; 85610; 85730; 87040; 93005; 93010; 96372; 96374; 96375; J0696; J1630; J1650; J2060; J7040